=== PATIENT | female | born 1985 | race Caucasian/White ===

== ENCOUNTER 2022-03-24 07:49 | Emergency (ER) | payer SELFPAY ==
[2022-03-24 08:26] LABS: Absolute Lymphocytes (CBC) 1.5 K/uL (0.7-4.9); Hematocrit 40.5 % (36.0-45.0); MPV 7.9 fL (7.6-11.3); RBC Red Blood Cell Count 4.39 M/uL (3.86-4.86)
[2022-03-24 08:27] LABS: Urine Blood Trace-lysed (Negative); Urine Glucose Negative (Negative); Urine Protein Negative (Negative)
[2022-03-24 08:45] LABS: Albumin 3.9 g/dL (3.4-5.0); Bilirubin Total 0.6 mg/dL (0.2-1.0); Potassium 4.1 mmol/L (3.5-5.1); Protein, Total 7.3 g/dL (6.4-8.2)
[2022-03-24] MEDS ORDERED: ONDANSETRON 4 MG/2 ML VIAL ONE (08:49)
[2022-03-24] MEDS ORDERED: MORPHINE 4 MG/ML SYR ONE ×2 (08:50→10:52)
--- NOTE | 2022-03-24 10:43 | RAD REPORT ---
EXAM DESCRIPTION: CT - Abdomen Pelvis W Contrast - 03/24/2022 10:13 am CLINICAL HISTORY: Abdominal pain, acute, nonlocalized COMPARISON: No comparisons TECHNIQUE: Biphasic, helical CT imaging of the abdomen and pelvis was performed following 100 ml non -ionic IV contrast. No oral contrast was given. All CT scans are performed using dose optimization technique as appropriate and may include automated exposure control or mA/KV adjustment according to patient size. FINDINGS: Minimal bilateral pleural effusions are present with no acute lung parenchymal finding at the bases. No cardiomegaly or pericardial effusion. The liver, spleen, and pancreas show no suspicious findings. Gallbladder and biliary tree are also wi thout suspicious finding. Symmetric renal function is seen with no hydronephrosis or suspicious renal mass. No pyelonephritis o r acute parenchymal process. Small 12 mm cyst seen in the lateral mid right kidney. No adrenal abnorm alities. Partially filled urinary bladder shows no suspicious finding. A 7 centimeter lobulated low-density mass is present in the fundus of the uterus. This may be a hypod ense or necrotic fibroid. The possibility of hydrocolpos or hydrometrocolpos the uterus not excluded. Small cysts are present in the ovaries adjacent to the uterus. No dilated bowel loops or bowel wall thickening. The appendix is normal. Trace amount of free intrape ritoneal fluid is present. No free air or pneumatosis. No hernia, mass or bulky lymphadenopathy. No suspicious bony findings. IMPRESSION: No appendicitis or surgically emergent finding to explain the patient's right-sided pain . There is moderate stool volume throughout the right-side of the colon. Patient has a 7 centimeter low-density mass in the fundal portion the uterus typically a necrotic or hypodense fibroid. Hydrocolpos or hydrometrocolpos cannot be excluded. No gross ovarian abnormality seen.
[2022-03-24] MEDS ORDERED: KETOROLAC 30 MG/ML INJ ONE (11:26)
--- NOTE | 2022-03-24 12:00 | RAD REPORT ---
EXAM DESCRIPTION: US - Pelvis Complete - 03/24/2022 11:13 am CLINICAL HISTORY: pelvic pain, mass COMPARISON: Abdomen Pelvis W Contrast dated 03/24/2022 TECHNIQUE: Transabdominal pelvic sonography was performed. FINDINGS: Both ovaries are identified and normal size. Doppler evaluation shows normal blood flow in the ovarian stroma. No suspicious ovarian or adnexal finding. Trace amount of free fluid is seen in the lower pelvis. This is within physiologic limits. Uterus is enlarged measuring 11.6 x 7.1 x 6.1 cm. There is a large heterogeneous mostly hyperechoic m ass in the fundal portion of the uterus. This is the correlate to the CT finding. This has a solid ap pearance on sonography. Echogenic, hemorrhagic material within an obstructed endometrial cavity is a lesser consideration. Endometrial stripe cannot be discerned. No other mass lesion identifiable. Mass is approximately 7 cm in diameter. IMPRESSION: Approximately 7 centimeter heterogeneous hyperechoic mass in the fundal portion of the u terus as a correlate to the CT finding. Solid mass is favored over hyperechoic hemorrhagic material. Benign fibroid is the most common solid mass lesion. More aggressive uterine process is much less likely. No ovarian or adnexal suspicious finding.
--- NOTE | 2022-03-24 12:28 | ER ---
Nurse's Notes [facility] Name: Roslyn Hidalgo Age: 36 yrs Sex: Female : 1985 Arrival Date: 03/24/2022 Time: 07:50 Bed 5 Private MD: Diagnosis: Leiomyoma of uterus, unspecified Presentation: 03/24 07:56 Chief complaint: Patient states: has been having stomach issues for a few days, iw yesterday after she used th bathroom she had lower abd pain and now its localized to the RLQ, has loss of appetite, no fever, dark colored urine and has had diarrhea. Coronavirus screen: At this time, the client does not indicate any symptoms associated with coronavirus-19. Ebola Screen: Patient negative for fever greater than or equal to 101.5 degrees Fahrenheit, and additional compatible Ebola Virus Disease symptoms Patient denies exposure to infectious person. Patient denies travel to an Ebola-affected area in the 21 days before illness onset. No symptoms or risks identified at this time. Initial Sepsis Screen: Does the patient meet any 2 criteria? No. Patient's initial sepsis screen is negative. Does the patient have a suspected source of infection? No. Patient's initial sepsis screen is negative. Risk Assessment: Do you want to hurt yourself or someone else? Patient reports no desire to harm self or others. Onset of symptoms was March 21, 2022. 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 - Social history:: Smoking status: Patient denies any tobacco usage or history of. Screenin:08 Abuse screen: Denies threats or abuse. Nutritional screening: No deficits noted. jd3 Tuberculosis screening: No symptoms or risk factors identified. Fall Risk None identified. Assessment: 08:09 General: Appears in no apparent distress. comfortable, Behavior is calm, cooperative, jd3 appropriate for age. Pain: Complains of pain in right lower quadrant Quality of pain is described as sharp. Neuro: Almaguer Agitation-Sedation Scale (RASS): 0 - Alert and Calm Level of Consciousness is awake, alert, obeys commands, Oriented to person, place, time, situation. Cardiovascular: Denies chest pain, Capillary refill < 3 seconds Patient's skin is warm and dry. Respiratory: Airway is patent Respiratory effort is even, unlabored, Respiratory pattern is regular, symmetrical, Denies cough, shortness of breath. GI: Abdomen is non-distended, Abd is soft X 4 quads Abdomen is tender to palpation X 4 quads. Reports lower abdominal pain, cramping, nausea. : Reports dark colored urine. EENT: No signs and/or symptoms were reported regarding the EENT system. Derm: Skin is intact, Skin is dry, Skin is normal, Skin temperature is warm. Musculoskeletal: Circulation, motion, and sensation intact. Range of motion: intact in all extremities. 09:56 Reassessment: Patient appears in no apparent distress at this time. No changes from jd3 previously documented assessment. Patient and/or family updated on plan of care and expected duration. Pain level reassessed. Patient is alert, oriented x 3, equal unlabored respirations, skin warm/dry/pink. 10:52 Reassessment: Patient appears in no apparent distress at this time. Patient and/or jd3 family updated on plan of care and expected duration. Pain level reassessed. Patient is alert, oriented x 3, equal unlabored respirations, skin warm/dry/pink. pt reports continued pain, provider notified. medicated for pain, see MAR. 11:58 Reassessment: Patient appears in no apparent distress at this time. Patient and/or jd3 family updated on plan of care and expected duration. Pain level reassessed. Patient is alert, oriented x 3, equal unlabored respirations, skin warm/dry/pink. 12:42 Reassessment: Patient appears in no apparent distress at this time. Patient and/or jd3 family updated on plan of care and expected duration. Pain level reassessed. Patient is alert, oriented x 3, equal unlabored respirations, skin warm/dry/pink. Patient states feeling better. Vital Signs: 07:56 BP 146 / 100; Pulse 84; Resp 16; Temp 98.4; Pulse Ox 97% on R/A; Weight 99.79 kg; iw Height 5 ft. 7 in. (170.18 cm); Pain 7/10; 09:56 BP 132 / 89; Pulse 83; Resp 16 S; Pulse Ox 98% on R/A; jd3 10:53 BP 140 / 115; Pulse 84; Resp 16 S; Pulse Ox 99% on R/A; jd3 11:59 BP 128 / 82; Pulse 81; Resp 16 S; Pulse Ox 99% on R/A; jd3 07:56 Body Mass Index 34.46 (99.79 kg, 170.18 cm) iw ED Course: 07:50 Patient arrived in ED. am2 07:58 Triage completed. iw 07:58 Arm band placed on. iw 08:02 Husam Bassett PA is PHCP. jmm 08:02 Lb Claros MD is Attending Physician. jmm 08:04 Nelson Boyd RN is Primary Nurse. jd3 08:08 Patient has correct armband on for positive identification. Bed in low position. Call jd3 light in reach. Side rails up X 1. Pulse ox on. NIBP on. 08:21 Inserted saline lock: 20 gauge in left antecubital area, using aseptic technique. Blood jd3 collected. 10:15 CT Abd/Pelvis - IV Contrast Only In Process Unspecified. EDMS 11:15 US Pelvis Complete In Process Unspecified. EDMS 12:26 Stephanie Stewart MD is Referral Physician. jmm 12:42 No provider procedures requiring assistance completed. IV discontinued, intact, jd3 bleeding controlled, No redness/swelling at site. Pressure dressing applied. Administered Medications: 08:51 Drug: morphine 4 mg Route: IVP; Site: left antecubital; jd3 09:50 Follow up: Response: No adverse reaction; RASS: Alert and Calm (0) jd3 08:51 Drug: Zofran (Ondansetron) 4 mg Route: IVP; Site: left antecubital; jd3 09:50 Follow up: Response: No adverse reaction jd3 10:50 Drug: morphine 4 mg Route: IVP; Site: left antecubital; jd3 11:47 Follow up: Response: No adverse reaction; RASS: Alert and Calm (0) jd3 11:25 Drug: Ketorolac 30 mg Route: IVP; Site: left antecubital; jd3 11:47 Follow up: Response: No adverse reaction jd3 Outcome: 12:27 Discharge ordered by . ying 12:42 Discharged to home ambulatory, with family. jd3 12:42 Condition: stable 12:42 Discharge instructions given to patient, family, Instructed on discharge instructions, follow up and referral plans. medication usage, Demonstrated understanding of instructions, follow-up care, medications, Prescriptions given X 3. 12:43 Patient left the ED. jd3 Signatures: Dispatcher [employer] EDMS Husam Bassett PA PA jmm Williams, Irene, RN RN Mary Donovan Jonathon, RN RN jd3 Corrections: (The following items were deleted from the chart) 08:27 08:09 GI: Abdomen is non-distended, Abd is soft X 4 quads Abdomen is tender to jd3 palpation X 4 quads. Reports lower abdominal pain, diarrhea, nausea, jd3 11:59 11:58 Reassessment: Patient appears in no apparent distress at this time. No changes jd3 from previously documented assessment. Patient and/or family updated on plan of care and expected duration. Pain level reassessed. Patient is alert, oriented x 3, equal unlabored respirations, skin warm/dry/pink. jd3
--- NOTE | 2022-03-24 12:28 | EDPHYS ---
Physician Documentation [facility] Name: Roslyn Hidalgo Age: 36 yrs Sex: Female : 1985 Arrival Date: 03/24/2022 Time: 07:50 Bed 5 Private MD: ED Physician Lb Claros HPI: 03/24 08:08 This 36 yrs old Female presents to ER via Ambulatory with complaints of Abdominal Pain jmm - right side. 08:08 The patient presents with abdominal pain. Onset: The symptoms/episode began/occurred jmm gradually. The symptoms do not radiate. Associated signs and symptoms: Pertinent positives: nausea. This is a 36-year-old female with no chronic medical conditions and presents emerged part with complaints of lower abdominal and pelvic pain beginning approximately 1 week ago worsening over the past day.. 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 - Social history:: Smoking status: Patient denies any tobacco usage or history of. ROS: 08:08 Constitutional: Negative for fever, chills, and weight loss, Cardiovascular: Negative jmm for chest pain, palpitations, and edema, Respiratory: Negative for shortness of breath, cough, wheezing, and pleuritic chest pain. 08:08 Abdomen/GI: Positive for abdominal pain. 08:08 All other systems are negative. Exam: 08:08 Constitutional: This is a well developed, well nourished patient who is awake, alert, jmm and in no acute distress. Head/Face: atraumatic. Eyes: EOMI, no conjunctival erythema appreciated ENT: Moist Mucus Membranes Neck: Trachea midline, Supple Chest/axilla: Normal chest wall appearance and motion. Cardiovascular: Regular rate and rhythm. No edema appreciated Respiratory: Normal respirations, no respiratory distress appreciated Back: Normal ROM Skin: General appearance color normal MS/ Extremity: Moves all extremities, no obvious deformities appreciated, no edema noted to the lower extremities Neuro: Awake and alert Psych: Behavior is normal, Mood is normal, Patient is cooperative and pleasant 08:08 Abdomen/GI: Inspection: abdomen appears normal, Bowel sounds: normal, Palpation: soft, mild abdominal tenderness, in the suprapubic area, right lower quadrant and left lower quadrant. Vital Signs: 07:56 BP 146 / 100; Pulse 84; Resp 16; Temp 98.4; Pulse Ox 97% on R/A; Weight 99.79 kg; iw Height 5 ft. 7 in. (170.18 cm); Pain 7/10; 09:56 BP 132 / 89; Pulse 83; Resp 16 S; Pulse Ox 98% on R/A; jd3 10:53 BP 140 / 115; Pulse 84; Resp 16 S; Pulse Ox 99% on R/A; jd3 11:59 BP 128 / 82; Pulse 81; Resp 16 S; Pulse Ox 99% on R/A; jd3 07:56 Body Mass Index 34.46 (99.79 kg, 170.18 cm) iw MDM: 08:08 Patient medically screened. [facility] 12:25 Data reviewed: vital signs, nurses notes. Counseling: I had a detailed discussion with ying the patient and/or guardian regarding: the historical points, exam findings, and any diagnostic results supporting the discharge/admit diagnosis, lab results, radiology results, the need for outpatient follow up, to return to the emergency department if symptoms worsen or persist or if there are any questions or concerns that arise at home. ED course: Patient is alert and non toxic in appearance in the ED. 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 Patient is otherwise given strict return precautions. patient understood and agrees with the plan of care. . 03/24 08:12 Order name: CBC with Diff; Complete Time: 08:46 [facility] 03/24 08:12 Order name: CMP; Complete Time: 08:46 [facility] 03/24 08:12 Order name: Lipase; Complete Time: 08:46 [facility] 03/24 08:14 Order name: CT Abd/Pelvis - IV Contrast Only; Complete Time: 10:48 [facility] 03/24 08:27 Order name: Urine Dipstick-Ancillary; Complete Time: 08:46 [facility] 03/24 08:30 Order name: Urine --Ancillary (enter results); Complete Time: 09:28 03/24 08:12 Order name: IV Saline Lock; Complete Time: 08:26 [facility] 03/24 08:12 Order name: Labs collected and sent; Complete Time: 08:26 [facility] 03/24 08:12 Order name: Urine Dipstick-Ancillary (obtain specimen); Complete Time: 08:26 [facility] 03/24 10:49 Order name: US Pelvis Complete; Complete Time: 12:10 [facility] 03/24 08:12 Order name: Urine Test (obtain specimen); Complete Time: 08:26 [facility] Administered Medications: 08:51 Drug: morphine 4 mg Route: IVP; Site: left antecubital; jd3 09:50 Follow up: Response: No adverse reaction; RASS: Alert and Calm (0) jd3 08:51 Drug: Zofran (Ondansetron) 4 mg Route: IVP; Site: left antecubital; jd3 09:50 Follow up: Response: No adverse reaction jd3 10:50 Drug: morphine 4 mg Route: IVP; Site: left antecubital; jd3 11:47 Follow up: Response: No adverse reaction; RASS: Alert and Calm (0) jd3 11:25 Drug: Ketorolac 30 mg Route: IVP; Site: left antecubital; jd3 11:47 Follow up: Response: No adverse reaction jd3 Disposition: 13:55 Co-signature as Attending Physician, Lb Claros MD I agree with the assessment and kdr plan of care. Disposition Summary: 03/24/22 12:27 Discharge Ordered Location: Home [facility] Condition: Stable [facility] Diagnosis - Leiomyoma of uterus, unspecified [facility] Followup: [facility] - With: Stephanie Stewart MD - When: 2 - 3 days - Reason: Recheck today's complaints, Continuance of care, Re-evaluation by your physician Discharge Instructions: - Discharge Summary Sheet [facility] - Uterine Fibroids [facility] - Urinary Tract Infection, Adult [facility] Forms: - Medication Reconciliation Form [facility] - Thank You Letter [facility] - Antibiotic Education [facility] - Prescription Opioid Use [facility] Prescriptions: - Diclofenac Sodium 75 mg Oral Tablet Sustained Release - take 1 tablet by ORAL route 2 times per day; 30 tablet; Refills: 0, Product [facility] Selection Permitted - orphenadrine citrate 100 mg Oral Tablet Sustained Release - take 1 tablet by ORAL route 2 times per day As needed; 20 tablet; Refills: 0, [facility] Product Selection Permitted - Cephalexin 500 mg Oral Capsule - take 1 capsule by ORAL route every 8 hours for 10 days; 30 capsule; Refills: 0, jmm Product Selection Permitted Signatures: Dispatcher [employer] Lb Garcia MD MD kdr Mickail, Joel, PA PA jmm Williams, Irene, RN RN Nelson Sevilla RN RN jd3
[2022-03-24 12:50] VITALS: TEMP 98.4
[2022-03-24 12:53] VITALS: O2SAT 99
[2022-03-24 12:54] VITALS: BP 128/82
== END 2022-03-24 12:43 | disposition home or self-care (01) ==
LOC: ER 07:49
DX: D25.9 Leiomyoma of uterus, unspecified (principal)
CPT/HCPCS: 36415; 74177; 76856; 80053; 81003; 81025; 83690; 85025; 96374; 96375; 99284; J2405; Q9967